=== PATIENT | male | born 1950 | race Caucasian/White ===

== ENCOUNTER 2022-03-26 09:47 | Emergency (ER) | payer OTHER ==
[2022-03-26] MEDS ORDERED: DIAZEPAM 5 MG TABLET ONE ×2 (10:34→13:52)
[2022-03-26] MEDS ORDERED: HYDROCODONE/APAP 5/325 MG TAB ONE (10:34)
[2022-03-26 11:20] LABS: Hematocrit 44.9 % (39.6-49.0); Lymphocytes % 20.9 % (15.3-44.8); MCV 95.2 fL (80-100); MPV 7.4 fL (7.6-11.3); RBC Red Blood Cell Count 4.71 M/uL (4.33-5.43)
--- NOTE | 2022-03-26 11:32 | RAD REPORT ---
EXAM DESCRIPTION: CT - Abdomen Pelvis Wo Contrast - 03/26/2022 11:08 am CLINICAL HISTORY: Abdominal pain. Left sided back pain COMPARISON: No comparisons TECHNIQUE: CT imaging of the abdomen and pelvis was performed without contrast. Solid organ, bowel a nd vascular assessment is limited due to lack of IV and oral contrast. All CT scans are performed using dose optimization technique as appropriate and may include automated exposure control or mA/KV adjustment according to patient size. FINDINGS: The lower lung moraes are clear.Small hiatal hernia. Cholecystectomy clips. The liver, spleen, pancreas, adrenal glands and kidneys are within normal limits for a limited non-co ntrast examination. No bowel obstruction, free air, free fluid or abscess. The appendix is normal. The osseous structures are within normal limits. IMPRESSION: No acute intra-abdominal or pelvic findings. A limited non-contrast examination was performed as detailed.
[2022-03-26 11:44] LABS: Albumin 3.7 g/dL (3.4-5.0); Bilirubin Total 0.5 mg/dL (0.2-1.0); Potassium 3.6 mmol/L (3.5-5.1); Protein, Total 6.6 g/dL (6.4-8.2)
--- NOTE | 2022-03-26 11:50 | EDPHYS ---
Physician Documentation [facility] Name: Ac Grover Age: 71 yrs Sex: Male : 1950 Arrival Date: 03/26/2022 Time: 09:53 Bed 12 Private MD: ED Physician Boni Quezada HPI: 03/26 11:49 This 71 yrs old Male presents to ER via EMS with complaints of Back Pain. ms3 11:49 The patient presents with pain that is acute, with no known mechanism of injury. The ms3 symptoms are located in the low back. Onset: The symptoms/episode began/occurred yesterday. The pain does not radiate. Associated signs and symptoms: Pertinent negatives: abdominal pain, chest pain, dysuria, fever, hematuria, incontinence, nausea, numbness, tingling, urinary retention, weakness. The problem was sustained Back pain became worse after reaching for something. Modifying factors: the patient symptoms are aggravated by bending, movement. Severity of symptoms: At their worst the symptoms were severe, in the emergency department the symptoms are unchanged. Historical: - Allergies: 10:12 No Known Allergies; jl7 - PMHx: 10:12 Anxiety; Hypercholesterolemia; jl7 - Immunization history:: Client reports receiving the 2nd dose of the Covid vaccine. - Social history:: Smoking status: Patient denies any tobacco usage or history of. ROS: 11:49 Constitutional: Negative for fever, and chills. ENT: Negative for injury, pain, and ms3 discharge, Neck: Negative for injury, pain, and swelling, Cardiovascular: Negative for chest pain, and palpitations. Respiratory: Negative for shortness of breath, cough, wheezing, and pleuritic chest pain, Abdomen/GI: Negative for abdominal pain, nausea, vomiting, diarrhea, and constipation. 11:49 Skin: Negative for injury, rash, and discoloration, Neuro: Negative for headache, weakness, numbness, tingling. Psych: Negative for depression, anxiety, suicide ideation, homicidal ideation, and hallucinations. 11:49 Back: Positive for of the left low back. 11:49 All other systems are negative. Exam: 11:49 Constitutional: This is a well developed, well nourished patient who is awake, alert, ms3 and in no acute distress. Head/Face: Normocephalic, atraumatic. Neck: Trachea midline, no cervical lymphadenopathy. Supple, full range of motion without nuchal rigidity, or vertebral point tenderness. No Meningismus. Chest/axilla: Normal chest wall appearance and motion. Nontender with no deformity. Cardiovascular: Regular rate and rhythm with a normal S1 and S2. No gallops, murmurs, or rubs. Normal PMI, no JVD. No pulse deficits. Respiratory: Lungs have equal breath sounds bilaterally, clear to auscultation and percussion. No rales, rhonchi or wheezes noted. No increased work of breathing, no retractions or nasal flaring. Abdomen/GI: Soft, non-tender, with normal bowel sounds. No distension or tympany. No guarding or rebound. No evidence of tenderness throughout. Skin: Warm, dry with normal turgor. Normal color with no rashes, no lesions, and no evidence of cellulitis. Psych: Awake, alert, with orientation to person, place and time. Behavior, mood, and affect are within normal limits. 11:49 Back: pain, that is severe, of the left low back, ROM is painful, with all movement, normal spinal alignment noted, vertebral tenderness, is not appreciated, muscle spasm, is appreciated in the left low back. Vital Signs: 10:07 BP 132 / 97; Pulse 69; Resp 17; Temp 98.2; Pulse Ox 100% on R/A; Weight 90.72 kg; jl7 Height 6 ft. 0 in. (182.88 cm); Pain 3/10; 13:30 BP 127 / 74; Pulse 65; Resp 15; Pulse Ox 100% ; jl7 10:07 Body Mass Index 27.12 (90.72 kg, 182.88 cm) 7 MDM: 09:55 Patient medically screened. ms3 11:49 Differential diagnosis: Abdominal Aortic Aneurysm arthritis, Fracture Metastatic ms3 Disease Neoplasm Pyelonephritis vertebral fracture, Kidney stone. 11:49 Data reviewed: vital signs, nurses notes, lab test result(s), radiologic studies, CT ms3 scan, and as a result, I will discharge patient. Data interpreted: Pulse oximetry: on room air is 100 %. Interpretation: normal. Counseling: I had a detailed discussion with the patient and/or guardian regarding: the historical points, exam findings, and any diagnostic results supporting the discharge/admit diagnosis, lab results, radiology results, the need for outpatient follow up, to return to the emergency department if symptoms worsen or persist or if there are any questions or concerns that arise at home. ED course: Patient is improved, in NAD, non-toxic appearing, sitting up in bed, no episodes of urinary/bowel incontinence, no saddle anesthesia, speaking full sentences.. 03/26 10:07 Order name: CBC with Diff; Complete Time: 11:37 ms3 03/26 10:07 Order name: CMP; Complete Time: 11:46 ms3 03/26 10:07 Order name: Lipase; Complete Time: 11:46 ms3 03/26 10:07 Order name: CT Abd/Pelvis - Without Contrast; Complete Time: 11:37 ms3 03/26 10:07 Order name: IV Saline Lock; Complete Time: 11:13 ms3 03/26 10:07 Order name: Labs collected and sent; Complete Time: 11:13 ms3 Administered Medications: 10:45 Drug: Valium (diazepam) 5 mg Route: PO; jl7 11:13 Follow up: Response: No adverse reaction; Pain is decreased jl7 10:47 Drug: HYDROcodone-acetaminophen 5 mg-325 mg 1 tabs Route: PO; jl7 11:13 Follow up: Response: No adverse reaction; Pain is decreased jl7 13:50 Drug: Valium (diazepam) 5 mg Route: PO; jl7 14:06 Follow up: Response: Medication administered at discharge. jl7 Disposition Summary: 03/26/22 11:49 Discharge Ordered Location: Home ms3 Condition: Stable ms3 Diagnosis - Low back pain ms3 Discharge Instructions: - Discharge Summary Sheet ms3 - Acute Back Pain, Adult ms3 Forms: - Medication Reconciliation Form ms3 - Thank You Letter ms3 - Antibiotic Education ms3 - Prescription Opioid Use ms3 Prescriptions: - Ibuprofen 600 mg Oral Tablet - take 1 tablet by ORAL route every 6 hours As needed take with food; 30 tablet; ms3 Refills: 0, Product Selection Permitted - Cyclobenzaprine 10 mg Oral Tablet - take 1 tablet by ORAL route every 8 hours As needed; 30 tablet; Refills: 0, ms3 Product Selection Permitted Signatures: Dispatcher [facility] Domenica Johnson RN RN jl7 Boni Quezada DO DO ms3
--- NOTE | 2022-03-26 11:50 | ER ---
Nurse's Notes [facility] Name: Ac Grover Age: 71 yrs Sex: Male : 1950 Arrival Date: 03/26/2022 Time: 09:53 Bed 12 Private MD: Diagnosis: Low back pain Presentation: 03/26 10:00 Chief complaint: Chief complaint: EMS states: Left lower back pain since last night jl7 after reaching for something. 10:07 Coronavirus screen: At this time, the client does not indicate any symptoms associated jl7 with coronavirus-19. Ebola Screen: No symptoms or risks identified at this time. Initial Sepsis Screen: Does the patient meet any 2 criteria? No. Patient's initial sepsis screen is negative. Does the patient have a suspected source of infection? No. Patient's initial sepsis screen is negative. Risk Assessment: Do you want to hurt yourself or someone else? Patient reports no desire to harm self or others. Onset of symptoms was March 25, 2022 at 23:00. Care prior to arrival: None. 10:07 Method Of Arrival: EMS: [facility] jl7 10:07 Acuity: MYRA 3 jl7 Triage Assessment: 10:12 General: Appears in no apparent distress. uncomfortable, Behavior is calm, cooperative, jl7 appropriate for age. Pain: Complains of pain in left low back Pain currently is 3 out of 10 on a pain scale. at worst was 10 out of 10 on a pain scale. Neuro: Level of Consciousness is awake, alert, obeys commands, Oriented to person, place, time, situation. Cardiovascular: Patient's skin is warm and dry. Respiratory: Airway is patent Respiratory effort is even, unlabored, Respiratory pattern is regular, symmetrical. Derm: Skin is pink, warm \T\ dry. Musculoskeletal: Swelling absent. Historical: - Allergies: 10:12 No Known Allergies; jl7 - PMHx: 10:12 Anxiety; Hypercholesterolemia; jl7 - Immunization history:: Client reports receiving the 2nd dose of the Covid vaccine. - Social history:: Smoking status: Patient denies any tobacco usage or history of. Screenin:13 Abuse screen: Denies threats or abuse. Denies injuries from another. Nutritional jl7 screening: No deficits noted. Tuberculosis screening: No symptoms or risk factors identified. Fall Risk IV access (20 points). Assessment: 11:13 Reassessment: Patient appears in no apparent distress at this time. Patient and/or jl7 family updated on plan of care and expected duration. Pain level reassessed. Patient is alert, oriented x 3, equal unlabored respirations, skin warm/dry/pink. Patient states symptoms have improved. 12:00 Reassessment: Pt reports his pain is better as long as he's not moving. jl7 14:03 Reassessment: Pt up for discharge, reports he's not going to be able to sit up or walk. jl7 This nurse able to slowly help pt to sit, stand and walk to his friend's vehicle. Vital Signs: 10:07 BP 132 / 97; Pulse 69; Resp 17; Temp 98.2; Pulse Ox 100% on R/A; Weight 90.72 kg; jl7 Height 6 ft. 0 in. (182.88 cm); Pain 3/10; 13:30 BP 127 / 74; Pulse 65; Resp 15; Pulse Ox 100% ; jl7 10:07 Body Mass Index 27.12 (90.72 kg, 182.88 cm) jl7 ED Course: 09:53 Patient arrived in ED. jl7 09:54 Boni Quezada DO is Attending Physician. ms3 10:07 Domenica Pandey, BRYN is Primary Nurse. jl7 10:12 Triage completed. jl7 10:12 Arm band placed on right wrist. jl7 10:57 CT Abd/Pelvis - Without Contrast In Process Unspecified. EDMS 11:13 Patient has correct armband on for positive identification. Pulse ox on. NIBP on. Warm jl7 blanket given. 11:13 Initial lab(s) drawn, by ma, sent to lab. Inserted saline lock: 22 gauge in right jl7 antecubital area, using aseptic technique. Blood collected. 13:30 No provider procedures requiring assistance completed. IV discontinued, intact, jl7 bleeding controlled, No redness/swelling at site. Pressure dressing applied. Administered Medications: 10:45 Drug: Valium (diazepam) 5 mg Route: PO; jl7 11:13 Follow up: Response: No adverse reaction; Pain is decreased jl7 10:47 Drug: HYDROcodone-acetaminophen 5 mg-325 mg 1 tabs Route: PO; jl7 11:13 Follow up: Response: No adverse reaction; Pain is decreased jl7 13:50 Drug: Valium (diazepam) 5 mg Route: PO; jl7 14:06 Follow up: Response: Medication administered at discharge. jl7 Medication: 11:13 VIS not applicable for this client. jl7 Outcome: 11:49 Discharge ordered by . ms3 14:07 Discharged to home ambulatory, with friend. jl7 14:07 Condition: stable 14:07 Discharge instructions given to patient, friend, Instructed on discharge instructions, follow up and referral plans. medication usage, Demonstrated understanding of instructions, follow-up care, medications, Prescriptions given X 2. 14:07 Patient left the ED. jl7 Signatures: Dispatcher [employer] EDDomenica Will RN RN jl7 Boni Quezada DO DO ms3 Corrections: (The following items were deleted from the chart) 10:12 10:00 Chief complaint: jl7 7 14:07 13:30 BP 127 / 34; Pulse 65bpm; Resp 15bpm; Pulse Ox 100%; jl7 jl7
[2022-03-26 14:22] VITALS: TEMP 98.2; O2SAT 100
[2022-03-26 14:23] VITALS: BP 127/74
== END 2022-03-26 14:07 | disposition home or self-care (01) ==
LOC: ER 09:47
DX: M54.50 Low back pain, unspecified (principal)
CPT/HCPCS: 36415; 74176; 80053; 83690; 85025

== ENCOUNTER 2022-07-01 09:18 | Day surgery (SDC) | payer OTHER ==
[2022-07-01 09:43] LABS: Potassium 3.3 mmol/L (3.5-5.1)
[2022-07-01] MEDS ORDERED: Ringers Lactate 1,000 ML IV ONE (09:59)
[2022-07-01] MEDS ORDERED: propofoL 200 MG/20 ML VIAL IV ONE (12:05)
[2022-07-01] MEDS ORDERED: LIDOCAINE 1% MPF 5 ML VIAL ONE (12:05)
--- NOTE | 2022-07-01 12:57 | ENDO RPT ---
[address], [address] EGD PROCEDURE REPORT EXAM DATE: 07/01/2022 PATIENT NAME: Ac Grover MR#: [id number] BIRTHDATE: 1950 ATTENDING: Jed Ken DR STATUS: outpatient PRINCIPAL LIBRARIAN: Anatoliy Xavier and Maria Elena Morin RN INDICATIONS: The patient is a 72 yr old Male here for an EGD due to mid epigastric abdominal pain PROCEDURE PERFORMED: EGD with biopsy for H. pylori MEDICATIONS: Per Anesthesia. TOPICAL ANESTHETIC: none CONSENT: The patient understands the risks and benefits of the procedure and understands that these risks include, but are not limited to: sedation, allergic reaction, infection, perforation and/or bleeding. Alternative means of evaluation and treatment include, among others: physical exam, x-rays, and/or surgical intervention. The patient elects to proceed with this endoscopic procedure. DESCRIPTION OF PROCEDURE: During intra-op preparation period all mechanical medical equipment was checked for proper function. Hand hygiene and appropriate measures for infection prevention was taken. Procedure, possible complications, and alternatives including but not limited to the possibility of bleeding, perforation, tear, infection, sepsis, need for surgery, need for blood transfusion, and anesthesia related complications were explained to the patient. After the risks, benefits and alternatives of the procedure were thoroughly explained, Informed consent was verified, confirmed and timeout was successfully executed by the treatment team. The patient was placed in the left lateral position. The patient was anesthetized with topical anesthesia. Through the anesthetized oropharyngeal area, the scope was passed without any difficulty. The [id number] ([id number]) endoscope was introduced through the mouth and advanced to the second portion of the duodenum. Retroflexed views revealed a moderate sized hiatal hernia. The gastroscope was then slowly withdrawn and removed. Duodenitis was found in the bulb and descending duodenum. Multiple biopsies were obtained and sent to pathology. With standard forceps, a biopsy was obtained and sent to pathology. A biopsy for H. pylori was taken. Mild gastritis was found in the total stomach. Multiple biopsies were obtained and sent to pathology. With standard forceps, a biopsy was obtained and sent to pathology. A biopsy for H. pylori was taken. Mild gastritis was found in the gastroesophageal junction. short segment - abnormal tissue - biopsied with cold biopsy forcepts Multiple biopsies were obtained and sent to pathology. With standard forceps, a biopsy was obtained and sent to pathology. A pedunculated polyp was found in the body of the stomach. discrete fleshy likely benign pedunculated Polyp was snared, then cauterized with monopolar cautery. Polyp was retrieved and sent to pathology. A moderate sized hiatal hernia was found in the gastroesophageal junction. Multiple biopsies were obtained and sent to pathology. ADVERSE EVENTS: There were no complications. IMPRESSIONS: 1. Duodenitis was found in the bulb and descending duodenum 2. Mild gastritis was found in the total stomach 3. Mild gastritis was found in the gastroesophageal junction 4. Grade 2 esophageal varices 5. Hiatus hernia RECOMMENDATIONS: 1. acid suppression therapy 2. anti-reflux regimen 3. await biopsy results 4. follow-up: office 2 week(s) 5. avoid NSAIDS 6. follow-up of helicobacter pylori status, treat if indicated 7. Refer to GI for management of esophageal varices REPEAT EXAM: Jed Ken DR eSigned: Jed Ken DR 07/01/2022 12:57 PM cc: CPT CODES: ICD9 CODES: PATIENT NAME: Ac Grover MR#: [id number]
--- NOTE | 2022-07-01 13:02 | ENDO RPT ---
[address], [address] COLONOSCOPY PROCEDURE REPORT EXAM DATE: 07/01/2022 PATIENT NAME: Ac Grover MR #: [id number] BIRTHDATE: 1950 ATTENDING: Jed Ken DR STATUS: outpatient MANUFACTURING ENGINEER: Anatoliy Xavier and Maria Elena Morin RN INDICATIONS: The patient is a 72 yr old Male here for a colonoscopy due to colon cancer screening and Chronic Diarrhea PROCEDURE PERFORMED: Colonoscopy with biopsy MEDICATIONS: Per Anesthesia. ESTIMATED BLOOD LOSS: None CONSENT: The patient understands the risks and benefits of the procedure and understands that these risks include, but are not limited to: sedation, allergic reaction, infection, perforation and/or bleeding. Alternative means of evaluation and treatment include, among others: physical exam, x-rays, and/or surgical intervention. The patient elects to proceed with this endoscopic procedure. DESCRIPTION OF PROCEDURE: During intra-op preparation period all mechanical medical equipment was checked for proper function. Hand hygiene and appropriate measures for infection prevention was taken. Procedure, possible complications, alternatives including, but not limited to possibility of bleeding, perforation, tear, infection, sepsis, need for surgery, need for blood transfusion, were explained to the patient. After the risks, benefits and alternatives of the procedure were thoroughly explained, Informed consent was verified, confirmed and timeout was successfully executed by the treatment team. The patient was placed in the left lateral position. A digital rectal exam was performed and revealed external hemorrhoids and A digital rectal exam was performed and revealed internal hemorrhoids. After appropriate level of anesthesia, the scope was passed. The [id number] ([id number]) endoscope was introduced through the anus and advanced to the cecum, which was identified by both the appendix and ileocecal valve. The quality of the prep was poor. The instrument was then slowly withdrawn as the colon was fully examined. Scope withdrawal time was 12 minutes. COLON FINDINGS: Moderate sized internal and external hemorrhoids were found. Was found petechiae and in the sigmoid colon. A biopsy of the lesion was performed using cold forceps. Mild Patchy Colitis of Sigmoid Colon - multiple biopsies taken - cold forcepts. Retroflexed views revealed no abnormalities. The scope was then completely withdrawn from the patient and the procedure terminated. ADVERSE EVENTS: There were no complications. IMPRESSIONS: 1. Moderate sized internal and external hemorrhoids 2. Petechiae and in the sigmoid colon; biopsy of the lesion was performed using cold forceps 3. Mild Patchy Colitis of Sigmoid Colon - multiple biopsies taken - cold forcepts RECOMMENDATIONS: 1. avoid NSAIDS 2. await biopsy results 3. fiber rich diet 4. follow-up: office 2 week(s) 5. Monitor for any evidence of rectal bleeding. 6. increase dietary water 7. yearly hemoquant 8. hemorrhoidal hygiene RECALL: Return in 2 year(s) for Colonoscopy, pending biopsy results. Poor prep Jed Ken DR eSigned: Jed Ken DR 07/01/2022 1:01 PM cc: CPT CODES: ICD9 CODES: PATIENT NAME: Ac Grover MR#: [id number]
--- NOTE | 2022-07-01 13:55 | EKG ---
Test Date: 2022-07-01 Test Time: 09:06:46 Biology Research Assistant: YUDY MEASUREMENT RESULTS: Intervals: Rate: 72 KS: 124 QRSD: 86 QT: 376 QTc: 411 [place]: P: 68 KS: 124 QRS: 87 T: 82 INTERPRETIVE STATEMENTS: Normal sinus rhythm Normal ECG Compared to ECG 06/11/2002 09:49:00 Sinus bradycardia no longer present Electronically Signed On 07-01-22 13:54:51 CDT by Daniel Martinez
[2022-07-01 15:11] VITALS: BP 119/85; TEMP 96.9; O2SAT 100
== END 2022-07-01 13:43 | disposition home or self-care (01) ==
LOC: OR 09:18
PROVIDERS: ATTEND Surgery
PROC: 0DB68ZX Excision of Stomach, Via Natural or Artificial Opening Endoscopic, Diagnostic (ICD-10-PCS; 2022-07-01)
PROC: 0DB48ZX Excision of Esophagogastric Junction, Via Natural or Artificial Opening Endoscopic, Diagnostic (ICD-10-PCS; 2022-07-01)
PROC: 0DBH8ZX Excision of Cecum, Via Natural or Artificial Opening Endoscopic, Diagnostic (ICD-10-PCS; 2022-07-01)
PROC: 0DBL8ZX Excision of Transverse Colon, Via Natural or Artificial Opening Endoscopic, Diagnostic (ICD-10-PCS; 2022-07-01)
PROC: 0DBN8ZX Excision of Sigmoid Colon, Via Natural or Artificial Opening Endoscopic, Diagnostic (ICD-10-PCS; 2022-07-01)
PROC: 0DB98ZX Excision of Duodenum, Via Natural or Artificial Opening Endoscopic, Diagnostic (ICD-10-PCS; principal; 2022-07-01 11:30)
PROC: 0DB78ZX Excision of Stomach, Pylorus, Via Natural or Artificial Opening Endoscopic, Diagnostic (ICD-10-PCS; 2022-07-01 11:30)
DX: K52.9 Noninfective gastroenteritis and colitis, unspecified (principal); R19.7 Diarrhea, unspecified; R10.13 Epigastric pain; K31.7 Polyp of stomach and duodenum; K29.50 Unspecified chronic gastritis without bleeding; K21.00 Gastro-esophageal reflux disease with esophagitis, without bleeding; K62.89 Other specified diseases of anus and rectum; K29.80 Duodenitis without bleeding; I85.00 Esophageal varices without bleeding; K44.9 Diaphragmatic hernia without obstruction or gangrene; K64.8 Other hemorrhoids; K64.4 Residual hemorrhoidal skin tags
CPT/HCPCS: 93005; 80048; 36415; 88312 ×2; 88305; 43239; 45380; J2704; J2001; J7120